=== PATIENT | female | born 1935 | race Two or more races ===

== ENCOUNTER 2017-09-10 08:48 | Outpatient (CLI) | payer OTHER | END 2017-09-10 08:59 | disposition home or self-care (01) | LOC: LAB 08:48 | DX: E11.65 Type 2 diabetes mellitus with hyperglycemia (principal); E03.8 Other specified hypothyroidism ==

== ENCOUNTER → 2017-09-10 | Outpatient (CLI) | payer OTHER | END | disposition home or self-care (01) | LOC: SONOGRAMA 10:28 | DX: E03.8 Other specified hypothyroidism (principal); E11.65 Type 2 diabetes mellitus with hyperglycemia; N17.9 Acute kidney failure, unspecified; E04.2 Nontoxic multinodular goiter ==

== ENCOUNTER 2017-09-23 09:48 | Outpatient (CLI) | payer OTHER | END 2017-09-23 09:56 | disposition home or self-care (01) | LOC: SONOGRAMA 09:48 | DX: E04.2 Nontoxic multinodular goiter (principal) ==

== ENCOUNTER 2019-10-19 09:51 | Outpatient (CLI) | payer OTHER | END 2019-10-19 11:00 | disposition home or self-care (01) | LOC: RAD 09:51 | DX: J45.998 Other asthma (principal) ==

== ENCOUNTER 2020-04-05 10:16 | Outpatient (CLI) | payer OTHER | END 2020-04-05 10:28 | disposition home or self-care (01) | LOC: MRI 10:16 | PROVIDERS: ATTEND Specialist | DX: F01.51 Vascular dementia, unspecified severity, with behavioral disturbance (principal); G21.4 Vascular parkinsonism; G46.0 Middle cerebral artery syndrome | CPT/HCPCS: 70553; A9575 ==

== ENCOUNTER 2021-07-31 14:18 | Emergency (ER) | payer OTHER ==
[~2021-07-31] VITALS: Ht 157.5 cm; Wt 54.4 kg
[2021-07-31] MEDS ORDERED: BACTRIM DS TAB1 EACH PO (19:03)
== END 2021-07-31 19:11 | disposition home or self-care (01) ==
LOC: ER 14:18
DX: E86.0 Dehydration (principal); E87.8 Other disorders of electrolyte and fluid balance, not elsewhere classified; N39.0 Urinary tract infection, site not specified; R42 Dizziness and giddiness; R53.1 Weakness